=== PATIENT | male | born 1950 | race Asian ===

== ENCOUNTER → 2017-11-23 | Day surgery (SDC) | payer OTHER ==
--- NOTE | 2017-11-23 08:19 | GOP ---
[f rep st] OPERATIVE REPORT DATE OF OPERATION: 11/23/2017 SURGEON: Preet Escobar MD PREOPERATIVE DIAGNOSIS: Elevated PSA. POSTOPERATIVE DIAGNOSIS: Elevated PSA. PROCEDURE PERFORMED: Ultrasound-guided biopsies of prostate. FINDINGS: INDICATIONS: The patient is a 67-year-old male who has a rising PSA. After discussing options, he e lected to undergo ultrasound-guided biopsies. DESCRIPTION OF PROCEDURE: With the patient in the left lateral decubitus position, transrectal ultra sonography was performed. Measurements were obtained. Prostate volume was approximately 28 cubic ce ntimeters. 10 mL of 1% lidocaine were used to create a periprostatic block. A total of 12 biopsies were obtained in the right and left base mid lateral prostate. Patient tolerated the procedure well. There were no complications. /[id number]/MODL
== END | disposition home or self-care (01) ==
LOC: BMCIMAGING 07:22
PROVIDERS: ATTEND Urology
PROC: 0VB03ZX Excision of Prostate, Percutaneous Approach, Diagnostic (ICD-10-PCS; principal; 2017-11-23)
DX: R97.20 Elevated prostate specific antigen [PSA] (principal)

== ENCOUNTER → 2017-12-18 | Outpatient (CLI) | payer OTHER ==
[~2017-12-18] MED LIST: IOPAMIDOL (ISOVUE-300) 100 ML BTL ONE
== END ==
LOC: FIMAGING 13:40
PROVIDERS: ATTEND Urology
DX: C61 Malignant neoplasm of prostate (principal)
CPT/HCPCS: 74177; Q9967

== ENCOUNTER → 2018-08-15 | Outpatient (CLI) | payer OTHER ==
[~2018-08-15] MED LIST changes: +GADOBUTROL 10 ML VIAL IVP ONE; -IOPAMIDOL (ISOVUE-300) 100 ML BTL ONE
== END ==
LOC: FIMAGING 15:30
PROVIDERS: ATTEND Urology
DX: C61 Malignant neoplasm of prostate (principal)
CPT/HCPCS: 72197; 76377; A9585; 82565-PO

== ENCOUNTER → 2018-08-22 | Outpatient (CLI) | payer OTHER | LOC: FIMAGING 09:22 | PROVIDERS: ATTEND Urology | DX: C61 Malignant neoplasm of prostate (principal) ==